=== PATIENT | female | born 1955 | race Caucasian/White ===

== ENCOUNTER 2019-05-08 07:27 | Inpatient (IN) ==
--- NOTE | 2019-05-07 15:32 | Anesthesiology Consultation ---
Date of Service May 07, 2019 Assessment & Plan (1) Encounter for pre-operative examination: PCP clearance 05/02/2019: "Patient medically cleared for proposed right total knee replacement surgery." Chart Review Chart Review: Acceptable Risk for Surgery and Patient seen in Pre Admission Testing Teaching & Discussion Instructed NPO after midnight before surgery, except medications with 15 cc of water. Medication instructions provided according to the PAT guidelines. History Surgery Operation Date: 05/08/19 09:55 Proposed Procedures p Right Total Knee Arthroplasty - Fred Martinez DO Height/Weight Height: 5 ft 5 in Weight: 57.153 kg Allergies Allergy/AdvReac Type Severity Reaction Status Date / Time doxycycline AdvReac Mild NAUSEA/VOMI Verified 04/25/19 16:11 TING oxycodone AdvReac Mild DIZZINESS Verified 04/25/19 16:11 Medications Home Medications Medication Instructions Recorded Confirmed Last Taken Ca carb-Ca gluc-Mg ox-Mg gluco 3 tab PO BID 04/20/19 04/20/19 Unknown [Calcium Magnesium] Zenon's wort 300 mg PO BID 04/20/19 04/20/19 Unknown cholecalciferol (vitamin D3) 1,000 unit PO QAM 04/20/19 04/20/19 Unknown [Vitamin D3] cyanocobalamin (vitamin B-12) 2,500 mcg SUBLINGUAL QAM 04/20/19 04/20/19 Unknown [Vitamin B-12] dicyclomine 20 mg PO DAILY PRN 04/20/19 04/20/19 Unknown levothyroxine [Synthroid] 75 mcg PO QAM 04/20/19 04/20/19 Unknown meloxicam 7.5 mg PO DAILY PRN 04/20/19 04/20/19 Unknown [id number] carb-vit K 1 tab PO QAM 04/20/19 04/20/19 Unknown [Women's Multivitamin] omega-3 fatty acids-fish oil [Fish 1 cap PO BID 04/20/19 04/20/19 Unknown Oil] propranolol 20 mg PO DAILY PRN 04/20/19 04/20/19 Unknown psyllium husk [Metamucil] 1 tbsp PO QAM 04/20/19 04/20/19 Unknown valacyclovir [Valtrex] 500 mg PO QAM 04/20/19 04/20/19 Unknown vitamin B complex-folic acid [B 1 tab PO QAM 04/20/19 04/20/19 Unknown Complex 100] vitamin E 400 unit PO QAM 04/20/19 04/20/19 Unknown Exercise / Class Metabolic Activity II 4-5 Yardwork/Stairs/Walk up hill Past Surgical History Surgical History H/O partial thyroidectomy History of adenoidectomy History of arthroscopy RIGHT KNEE History of carpal tunnel release BILAT History of colonoscopy History of dilatation and curettage X2 History of esophagogastroduodenoscopy (EGD) History of surgery on left wrist FROM FX > X3 History of surgery on right wrist FROM FX History of tonsillectomy Hx of Achilles tendon repair RIGHT Hx of fracture of tibia WITH REPAIR Past Anesthesia History No Hx of Anesthesia Complications and No Family Hx of Anesthesia Complications History of PONV No Hx of PONV and No Hx of Motion Sickness Social History Smoking Status: Never smoker Do You Dip or Chew Tobacco: No Hx Alcohol Use: Yes Alcohol type: wine alcohol intake frequency: a few times a week Hx Substance Use: No substance use type: does not use Review of Systems Pt denies any recent chest pain, shortness of breath, palpitations, cough, fever or URI. Physical Exam Vital Signs BP: 122/79 P: 72bpm SPO2: 97% RA T: 98.1 F R: 12 ENMT Mouth: no dental restorations, no chipped teeth and no loose teeth Thyromental Distance: > or= 3.5 Finger Breadths (3.5) Mallampati Class: I Neck neck extension not limited Respiratory normal respiratory effort Auscultation: lungs clear to auscultation bilaterally Cardiovascular Rate/Rhythm: regular rate and regular rhythm Heart Sounds: no murmur Extremities: no edema Testing Other Testing Laboratory Results Date: 04/25/19 WBC: 5.63 H/H: 13.5/40 PLATELETS: 270 SODIUM: 142 POTASSIUM: 4.4 CHLORIDE: 107 CO2: 31 BUN: 17 CREATININE: 1.03 GLUCOSE: 111 PT: 10.5 PTT: 25.3 INR: 1.0 A1C: 5.3% UA: negative for bacteria TYPE AND SCREEN: A+, Antibody - Electrocardiogram Date: 11/14/18 Findings: + NSR @ (75bpm) Possible LAE. Chest X-Ray Date: 04/25/19 Findings: + NAD
[~2019-05-08 07:27] MED LIST: ACETAMINOPHEN 500 MG TAB PO SCH; CEFAZOLIN 2000MG 2,000 MG/15 ML SYR IV SCH; CeleBREX 200 MG CAP PO SCH; FAMOTIDINE 20 MG TAB PO SCH; GABAPENTIN 600 MG DOSE PO SCH; LR 500ML BOLUS, THEN 15ML/HR IV SCH; METOCLOPRAMIDE HCL 10 MG TABLET PO SCH; ROPIVACAINE 0.5% HCL/PF 150 MG, BUPIVACAINE 0.5% MPF 30 ML, EPINEPHrine 30MG/30ML (OR U... INSTIL SCH; TRANEXAMIC ACID 1,000 MG **IV Intra-op IV SCH; TRANEXAMIC ACID 1,000 MG **IV Pre-op IV SCH; dexAMETHasone 4 MG TAB PO SCH
[2019-05-08] MEDS ORDERED: BUPIVACAINE/EPINEPHRINE 0.25% 1:200,000 30 ML VIAL ONE (07:48)
[2019-05-08] MEDS ORDERED: BUPIVACAINE 0.5 % 5 MG/1 ML PF 10ML VIAL ONE (07:48)
[2019-05-08] MEDS ORDERED: DEXAMETHASONE SOD INJ 4 MG/ML VIAL ONE (07:49)
[2019-05-08] MEDS ORDERED: MIDAZOLAM HCL 1 MG/ML 2ML VIAL ONE (08:23)
[2019-05-08] MEDS ORDERED: fentaNYL citrate 100 MCG/2 ML VIAL ONE (08:23)
[2019-05-08] MEDS ORDERED: LIDOCAINE HCL 2% 2 ML VIAL/AMP(20MG/ML) INFIL ONE (08:23)
[2019-05-08] MEDS ORDERED: ONDANSETRON INJ 2 MG/ML 2 ML VIAL ONE (08:23)
[2019-05-08] MEDS ORDERED: PROPOFOL IV EMULSION 10 MG/ML 20 ML VIAL IV ONE (08:23)
--- NOTE | 2019-05-08 08:54 | History & Physical Bridge Note ---
Date of Service May 08, 2019 History & Physical Bridge Note I have examined the patient, reviewed the History & Physical and in the interval since the performance of the History & Physical I have noted the following changes of clinical significance: no changes noted
[2019-05-08] MEDS ORDERED: ORTHO JOINT ANESTHETIC ONE (09:25)
[2019-05-08] MEDS ORDERED: BACITRACIN INJ 50,000 UNIT VIAL ONE (09:25)
[2019-05-08] MEDS ORDERED: ATROPINE SULFATE 0.1 MG/ML 10ML SYR IV PRN (10:16)
[2019-05-08] MEDS ORDERED: fentaNYL citrate 100 MCG/2 ML VIAL IV PRN (10:16)
[2019-05-08] MEDS ORDERED: ONDANSETRON INJ 2 MG/ML 2 ML VIAL IV PRN ×2 (10:16→13:23)
[2019-05-08] MEDS ORDERED: ePHEDrine sulfate 50 MG/ML AMP IV PRN (10:16)
[2019-05-08] MEDS ORDERED: ePHEDrine sulfate 50 MG/ML SYR ONE (10:46)
[2019-05-08] MEDS ORDERED: PHENYLEPHRINE 100MCG/ML 5ML SYR ONE (10:46)
--- NOTE | 2019-05-08 11:21 | Operative Report ---
Post Operative Report Pre & Post Diagnosis Operation Date: 05/08/19 09:55 Pre-Op Diagnosis: Right Knee Osteoarthritis Post-Op Diagnosis: Right Knee Osteoarthritis I identified the patient and participated in the time-out.: Yes Procedure Operation Date: 05/08/19 09:55 Actual Procedures p Right Total Knee Arthroplasty, Cemented(Right utilizing [employer] journey 2 patient matched total knee arthroplasty size 4 femur 3 tibia 13 polyethylene 29 oval patella) - Fred Martinez DO Surgeon Fred Martinez DO Therapy Aide MANOHAR Garcia Estimated Blood Loss 5 Findings Consistent with Post-Op Diagnosis Patient presents with severe end-stage tricompartmental degenerative joint disease of the right knee varus alignment subchondral cystic changes marginal osteophytes eburnated [id number] with moderate to large effusion Specimens Bone and cartilage Drains Medium bore Hemovac Anesthesia Type MAC Spinal Regional Complications none Disposition Accompanied Patient To Recovery: No Disposition: Recovery Room Indications Patient presents with complaints of ongoing pain about the right knee no response to conservative management and physical therapy anti-inflammatories relative rest activity modification corticosteroid injections bracing the above intraoperative findings noted times surgery Description of Procedure After proper prepping and draping of the Right lower extremity anterior midline incision was made over the region of the extensor extensor mechanism after meticulous hemostasis was obtained and maintained in subcutaneous tissues a medial parapatellar incision was made The patella was subluxed lateralward the medial lateral gutter were cleaned from any hypertrophic synovitis and scar tissue of the distal femoral block was placed and the distal femoral osteotomy cut was made subsequently the chamfers anterior and posterior osteotomy cuts were made utilizing the 4-in-1 block the tibia was subsequently subluxed anteriorward medial and ateral meniscal remnants were excised in their entirety remnants of the anterior and posterior cruciate ligaments were excised in their entirety excellent exposure of the proximal tibia was obtained the tibial osteotomy guide was placed on the proximal tibial osteotomy cut was made once again the knee was irrigated with copious amounts of sterile saline solution the patella was subsequently everted lateralward thickened scar tissue around the patella was removed the patella was subsequently cut utilizing a freehand gianna hnique and was drilled prepared for final preparation and placement of patella socially flexion-extension gaps were checked and the equal and symmetric trials were placed to the appropriate femoral and tibial trials with poly-spacer being placed for equal flexion and extension gaps and full range of motion including extension to 0 and flexion to 140 the trial components after having been taken to recovery range of motion was subsequently removed meticulous hemostasis was obtained and maintained subsequently a knee block injection of joint cocktail including ropivacaine 0.5% 150 mg. Bupivacaine 0.5% epinephrine 1-200,030 mL's toradol 30 mg dexamethasone 4 mg ketamine 10 mg clonidine 100 micrograms normal saline solution 30 mg was infiltrated into the soft tissues of the posterior knee medial lateral gutters and periosteal synovium special attention was paid to protect neurovascular structures at all times subsequently trial components having been removed the knee was irrigated with sterile saline solution. debris was removed the proximal tibia was subsequently prepared and was made ready for the placement of the tibial component tibial component was also cemented and tamped into position the femoral component was subsequently placed and cemented in the position the patellar component was subsequently cemented in position because hemostasis once again obtained and maintained wound having been thoroughly irrigated with debridement and debridement lavage was performed as well as a medial parapatellar incision closed with #1 Vicryl in interrupted fashion subcutaneous was closed with #2 Vicryl skin was closed with skin clips. PA-C was necessary for prepping and drapping as well as wound closure of deep fascia Sub cutaneous tissue and skin and was necessary for the case. A sterile compressive dressing was placed patient was taken to recovery in stable condition of report dictated by Juan I attest to the content of the Intraoperative Record and any orders documented therein. Any exceptions are noted below. I attest to the content of the Intraoperative Record and any orders documented therein. Any exceptions are noted below.
--- NOTE | 2019-05-08 12:37 | XRay Report ---
XR knee RT 1 or 2V routine CLINICAL HISTORY: Surgical Post Op COMPARISON: None. DISCUSSION: Anatomic alignment posttotal right knee arthroplasty. Could contact between prosthetic an d underlying bone. Expected postoperative soft tissue change IMPRESSION: Anatomic alignment posttotal right knee arthroplasty. ACT 112: Negative or not required by law. The above report was generated using voice recognition software. It may contain grammatical, syntax or spelling errors. Electronically signed by: Aleksey Thomas M.D. 05/08/2019 12:35 PM
--- NOTE | 2019-05-08 13:05 | Anesthesiology Progress Note ---
Date of Service May 08, 2019 Anesthesia Post Procedure Vital Signs Vital Signs: Temp Pulse Pulse Resp BP Pulse Ox 05/08/19 13:00 82 16 105/68 98 05/08/19 12:50 74 15 106/64 95 05/08/19 12:40 36.2 C L 71 12 104/61 95 05/08/19 12:30 72 13 107/59 L 99 05/08/19 12:20 70 14 101/60 99 05/08/19 12:10 79 12 100/58 L 98 05/08/19 12:02 36.0 C L 85 16 101/64 100 05/08/19 08:38 36.8 C 74 20 112/78 96 Transfer of Care Handoff Completed per policy Notes Mental Status: alert / awake / arousable Patient Amnestic to Procedure: Yes Nausea / Vomiting: adequately controlled Pain: adequately controlled Airway Patency, RR, SpO2: stable & adequate BP & HR: stable & adequate Hydration State: stable & adequate Neuraxial Anesthesia: was administered and sensory block is resolving Anesthetic Complications: no major complications apparent
[2019-05-08] MEDS ORDERED: NALOXONE HCL 0.4 MG/1 ML VIAL/CARP IV PRN (13:23)
[2019-05-08] MEDS ORDERED: METOCLOPRAMIDE HCL INJ 5 MG/ML 2 ML VIAL IV PRN (13:23)
[2019-05-08] MEDS ORDERED: PROPRANOLOL HCL 20 MG TAB PO PRN (13:23)
[2019-05-08] MEDS ORDERED: DICYCLOMINE HCL 20 MG TAB PO PRN (13:23)
[2019-05-08] MEDS ORDERED: bisacodyL 10 MG SUPP PR PRN (13:23)
[2019-05-08] MEDS ORDERED: MAGNESIUM HYDROXIDE SUSP 30 ML UDC PO PRN (13:23)
[2019-05-08] MEDS ORDERED: SODIUM CHLORIDE 0.9% 1000ML 1,000 ML IV SCH (13:23)
[2019-05-08] MEDS ORDERED: HYDROmorphone INJ 1 MG/ML SYRINGE IV PRN (13:23)
[2019-05-08 14:52] LABS: Creatinine Clr Calc Pharmacy 48.2 ml/min; Est GFR (African American) 64.3; Est GFR (Non-African American) 55.4
[2019-05-08] MEDS: KETOROLAC 30 MG/ML VIAL IV SCH ×2 (15:31→21:19)
[2019-05-08] MEDS: CEFAZOLIN 2000MG 2,000 MG/15 ML SYR IV SCH (18:27)
[2019-05-08] MEDS: HYDROCODONE/ACETAMOPHEN 5/325MG TAB PO PRN (20:47)
[2019-05-08] MEDS: ASPIRIN 81 MG ECTAB PO SCH (20:49)
[2019-05-08] MEDS: DOCUSATE SODIUM 100 MG CAP PO SCH (20:51)
[2019-05-08] MEDS: SENNA 8.6 MG TAB PO SCH (20:51)
[2019-05-08] MEDS: PSYLLIUM 58.6% POWDER PACKET PO SCH (21:20)
[2019-05-09] MEDS: HYDROCODONE/ACETAMOPHEN 5/325MG TAB PO PRN ×4 (01:02→21:36)
[2019-05-09] MEDS: CEFAZOLIN 2000MG 2,000 MG/15 ML SYR IV SCH (01:03)
[2019-05-09 05:32] LABS: Hematocrit (blood only) 32.3 % (37-47); Mean Corpuscular Hemoglobin 34.4 pg (25-34); Mean Corpuscular Hgb Conc 34.1 g/dL (32-36); Mean Corpuscular Volume 100.9 fL (80-100); Mean Platelet Volume 10.7 fL (7.4-10.4); Platelet Count 262 K/uL (130-400); RDW Coefficient of Variation 13.1 % (11.5-14.5); RDW Standard Deviation 48.4 fL (36.4-46.3); White Blood Count 16.41 K/uL (4.8-10.8)
[2019-05-09] MEDS: LEVOTHYROXINE SODIUM 75 MCG TABLET PO SCH (05:43)
[2019-05-09] MEDS: KETOROLAC 30 MG/ML VIAL IV SCH ×2 (05:43→12:43)
[2019-05-09 06:06] LABS: BUN Creatinine Ratio 19.2 (10-20); Calcium 8.2 mg/dl (8.5-10.1); Creatinine Clr Calc Pharmacy 59.5 ml/min; Est GFR (African American) 82.7; Est GFR (Non-African American) 71.4; Potassium 4.1 mmol/L (3.5-5.1)
--- NOTE | 2019-05-09 07:26 | Anesthesiology Progress Note ---
Date of Service May 09, 2019 Anesthesia Post Procedure Vital Signs Vital Signs: Temp Pulse Pulse Pulse Resp BP BP 05/09/19 07:14 36.9 C 57 L 16 106/64 05/09/19 03:07 36.7 C 62 14 99/58 L 05/08/19 23:20 37.1 C 63 16 106/61 05/08/19 19:21 36.5 C 75 16 112/67 05/08/19 16:16 36.3 C L 90 18 103/65 05/08/19 15:16 36.3 C L 89 18 114/68 05/08/19 14:12 36.5 C 89 16 114/74 05/08/19 13:44 82 16 110/68 05/08/19 13:10 36.3 C L 85 16 100/64 05/08/19 13:00 82 16 105/68 05/08/19 12:50 74 15 106/64 05/08/19 12:40 36.2 C L 71 12 104/61 05/08/19 12:30 72 13 107/59 L 05/08/19 12:20 70 14 101/60 05/08/19 12:10 79 12 100/58 L 05/08/19 12:02 36.0 C L 85 16 101/64 05/08/19 08:38 36.8 C 74 20 112/78 Pulse Ox 05/09/19 07:14 98 05/09/19 03:07 99 05/08/19 23:20 97 05/08/19 19:21 98 05/08/19 16:16 99 05/08/19 15:16 99 05/08/19 14:12 100 05/08/19 13:44 99 05/08/19 13:10 98 05/08/19 13:00 98 05/08/19 12:50 95 05/08/19 12:40 95 05/08/19 12:30 99 05/08/19 12:20 99 05/08/19 12:10 98 05/08/19 12:02 100 05/08/19 08:38 96 Pain Intensity Left Shoulder: Pain Intensity: 5 Right Knee: Pain Intensity: 5 Notes Mental Status: alert / awake / arousable Patient Amnestic to Procedure: Yes Nausea / Vomiting: adequately controlled Pain: adequately controlled Airway Patency, RR, SpO2: stable & adequate BP & HR: stable & adequate Hydration State: stable & adequate Neuraxial Anesthesia: sensory block resolved Anesthetic Complications: no major complications apparent
[2019-05-09] MEDS: CHOLECALCIFEROL 1,000 UNITS 25 MCG TAB PO SCH (07:49)
[2019-05-09] MEDS: CYANOCOBALAMIN (VITAMIN B-12) 2,500 MCG TAB.SUBL SL SCH (07:49)
[2019-05-09] MEDS: ASPIRIN 81 MG ECTAB PO SCH ×2 (07:49→21:39)
--- NOTE | 2019-05-09 08:11 | Orthopedic Progress Note ---
Date of Service May 09, 2019 Assessment & Plan (1) Arthritis of right knee: Postop day 1 status post right total knee arthroplasty. PT/OT protocols. Weightbearing as tolerated. DVT prophylaxis with aspirin p.o. twice daily, SCDs, BRAD quick Continue current pain regimen. Patient receiving p.o. pain meds at the time of my visit. DC planning-patient is hoping for home health services however she has some concerns of whether her insurance will cover it or not. We will have case management stop by and discuss this with her. Admission and Anticipated Discharge Date Admission Date: May 08, 2019 Subjective Postop day 1 Patient is lying in bed awake and alert. States she is currently having pain that rates at a 7 or an 8 out of 10. She states that she had minimal sleep last night. No other complaints at this time. Denies any shortness of breath, chest pain, lightheadedness. Physical Exam Physical Exam: Dressings are clean, dry, and intact. Calves are soft and nontender. Neurovascular is intact. Toes are mobile. With good dorsiflexion and plantarflexion of the right ankle. Thick drainage was 20 mL's from the previous shift. Results & Data ([place]) Vital Signs (Past 12 Hours) Vital Signs Temp Pulse Pulse Resp BP BP Pulse Ox 05/09/19 07:14 36.9 C 57 L 16 106/64 98 05/09/19 03:07 36.7 C 62 14 99/58 L 99 05/08/19 23:20 37.1 C 63 16 106/61 97 Laboratory Results Laboratory Results WBC 16.41 K/uL (4.8-10.8) H 05/09/19 04:48 RBC 3.20 M/uL (4.2-5.4) L 05/09/19 04:48 Hgb 11.0 g/dL (12.0-16.0) L 05/09/19 04:48 Hct 32.3 % (37-47) L 05/09/19 04:48 MCV 100.9 fL (80-100) H 05/09/19 04:48 MCH 34.4 pg (25-34) H 05/09/19 04:48 MCHC 34.1 g/dL (32-36) 05/09/19 04:48 RDW Std Deviation 48.4 fL (36.4-46.3) H 05/09/19 04:48 RDW Coeff of Lesa 13.1 % (11.5-14.5) 05/09/19 04:48 Plt Count 262 K/uL (130-400) 05/09/19 04:48 MPV 10.7 fL (7.4-10.4) H 05/09/19 04:48 Sodium 142 mmol/L (136-145) 05/09/19 04:48 Potassium 4.1 mmol/L (3.5-5.1) 05/09/19 04:48 Chloride 111 mmol/L (98-107) H 05/09/19 04:48 Carbon Dioxide 25 mmol/L (21-32) 05/09/19 04:48 Anion Gap 6.0 (3-11) 05/09/19 04:48 BUN 17 mg/dl (7-18) 05/09/19 04:48 Creatinine 0.86 mg/dl (0.6-1.2) 05/09/19 04:48 Est Cr Clr Drug Dosing 59.5 ml/min 05/09/19 04:48 Est GFR ( Amer) 82.7 05/09/19 04:48 Est GFR (Non-Af Amer) 71.4 05/09/19 04:48 BUN/Creatinine Ratio 19.2 (10-20) 05/09/19 04:48 Glucose 135 mg/dl (70-99) H 05/09/19 04:48 Calcium 8.2 mg/dl (8.5-10.1) L 05/09/19 04:48
[2019-05-09] MEDS: PSYLLIUM 58.6% POWDER PACKET PO SCH (10:34)
[2019-05-09] MEDS: DOCUSATE SODIUM 100 MG CAP PO SCH ×2 (10:34→21:39)
[2019-05-09] MEDS: MULTIVITAMIN TAB PO SCH (10:35)
[2019-05-09] MEDS: SENNA 8.6 MG TAB PO SCH (21:38)
[2019-05-09] MEDS: CeleBREX 200 MG CAP PO SCH (21:39)
[2019-05-10] MEDS: HYDROCODONE/ACETAMOPHEN 5/325MG TAB PO PRN ×2 (04:58→10:26)
[2019-05-10] MEDS: LEVOTHYROXINE SODIUM 75 MCG TABLET PO SCH (05:46)
--- NOTE | 2019-05-10 07:36 | Orthopedic Progress Note ---
Date of Service May 10, 2019 Assessment & Plan (1) Arthritis of right knee: Postop day 2 status post right total knee arthroplasty. PT/OT protocols. Weightbearing as tolerated. DVT prophylaxis with aspirin p.o. twice daily, SCDs, BRAD quick Continue current pain regimen. she lives alone but has close friends nearby that will offer her assistance. she is concerned that she doesn't have the room in her house to do a lot of walking, she would like to discuss with CM possible rehab vs HHPT and what her coverage would look like. will recheck after PT Today Admission and Anticipated Discharge Date Admission Date: May 08, 2019 Subjective Postop day 2 Patient is lying in bed awake and alert. States she is currently having pain that rates at a 6 out of 10. She had better sleep last night. Denies any shortness of breath, chest pain, lightheadedness. Physical Exam Physical Exam: Vital Signs Temp 36.6 C 05/10/19 07:18 Pulse 67 05/10/19 07:18 Resp 16 05/10/19 07:18 BP 120/69 05/10/19 07:18 Pulse Ox 97 05/10/19 07:18 Intake & Output 05/09/19 05/10/19 05/10/19 18:59 06:59 18:59 Intake Total 500 / 1900 1400 / 1900 Output Total 200 / 375 175 / 375 Balance 300 / 1525 1225 / 1525 Intake: Oral 500 / 1900 1400 / 1900 Output: Drain Output 200 / 375 175 / 375 Right Knee Hem ovac 200 / 375 175 / 375 Other: # Unmeasured Voi ds 3 Constitutional: WD/WN, vitals as above no acute distress Musculoskeletal: right knee: NVDI, calf SNT, negative bebeto sign. DP palpable, able to wiggle toes/ankle movement without difficulty. Incision clean dry and intact. expected post-operative bruising noted. Results & Data ([facility]) Vital Signs (Past 12 Hours) Vital Signs Temp Pulse Pulse Resp BP BP Pulse Ox 05/10/19 07:18 36.6 C 67 16 120/69 97 05/09/19 23:43 37.0 C 65 15 115/76 99 Laboratory Results Laboratory Results WBC 16.41 K/uL (4.8-10.8) H 05/09/19 04:48 RBC 3.20 M/uL (4.2-5.4) L 05/09/19 04:48 Hgb 11.0 g/dL (12.0-16.0) L 05/09/19 04:48 Hct 32.3 % (37-47) L 05/09/19 04:48 MCV 100.9 fL (80-100) H 05/09/19 04:48 MCH 34.4 pg (25-34) H 05/09/19 04:48 MCHC 34.1 g/dL (32-36) 05/09/19 04:48 RDW Std Deviation 48.4 fL (36.4-46.3) H 05/09/19 04:48 RDW Coeff of Lesa 13.1 % (11.5-14.5) 05/09/19 04:48 Plt Count 262 K/uL (130-400) 05/09/19 04:48 MPV 10.7 fL (7.4-10.4) H 05/09/19 04:48 Sodium 142 mmol/L (136-145) 05/09/19 04:48 Potassium 4.1 mmol/L (3.5-5.1) 05/09/19 04:48 Chloride 111 mmol/L (98-107) H 05/09/19 04:48 Carbon Dioxide 25 mmol/L (21-32) 05/09/19 04:48 Anion Gap 6.0 (3-11) 05/09/19 04:48 BUN 17 mg/dl (7-18) 05/09/19 04:48 Creatinine 0.86 mg/dl (0.6-1.2) 05/09/19 04:48 Est Cr Clr Drug Dosing 59.5 ml/min 05/09/19 04:48 Est GFR ( Amer) 82.7 05/09/19 04:48 Est GFR (Non-Af Amer) 71.4 05/09/19 04:48 BUN/Creatinine Ratio 19.2 (10-20) 05/09/19 04:48 Glucose 135 mg/dl (70-99) H 05/09/19 04:48 Calcium 8.2 mg/dl (8.5-10.1) L 05/09/19 04:48 Hepatitis C Ab Screen Neg (Neg) 05/09/19 04:48
[2019-05-10] MEDS: CYANOCOBALAMIN (VITAMIN B-12) 2,500 MCG TAB.SUBL SL SCH (08:06)
[2019-05-10] MEDS: CeleBREX 200 MG CAP PO SCH (08:06)
[2019-05-10] MEDS: MULTIVITAMIN TAB PO SCH (08:06)
[2019-05-10] MEDS: ASPIRIN 81 MG ECTAB PO SCH (08:06)
[2019-05-10] MEDS: CHOLECALCIFEROL 1,000 UNITS 25 MCG TAB PO SCH (08:06)
[2019-05-10] MEDS: DOCUSATE SODIUM 100 MG CAP PO SCH (08:07)
[2019-05-10] MEDS: PSYLLIUM 58.6% POWDER PACKET PO SCH (08:09)
--- NOTE | 2019-05-10 19:22 | Discharge Summary ---
Date of Service date of discharge: May 10, 2019 date of admission: 05-08-19 Principal Diagnosis right knee arthritis Discharge Exam Vital Signs Temp 36.6 C 05/10/19 13:53 Pulse 65 05/10/19 13:53 Resp 16 05/10/19 13:53 BP 115/76 05/10/19 13:53 Pulse Ox 97 05/10/19 13:53 Intake & Output 05/10/19 05/10/19 05/11/19 06:59 18:59 06:59 Intake Total 1400 / 1900 715 / 715 Output Total 175 / 375 Balance 1225 / 1525 715 / 715 Weight 57.153 kg Intake: Oral 1400 / 1900 715 / 715 Output: Drain Output 175 / 375 Right Knee Hemovac 175 / 375 Other: # Unmeasured Voids 3 Constitutional WD/WN, vitals as above no acute distress Musculoskeletal right knee: NVDI, calf SNT, negative bebeto sign. DP palpable, able to wiggle toes/ankle movement without difficulty. Incision clean dry and intact. expected post-operative bruising noted. Discharge Data Allergies Allergy/AdvReac Type Severity Reaction Status Date / Time doxycycline AdvReac Mild NAUSEA/VOMI Verified 04/25/19 16:11 TING oxycodone AdvReac Mild DIZZINESS Verified 04/25/19 16:11 Consultations 05/08/19 13:23 Consult Case Management - Discharge Planning Routine 05/10/19 07:32 Consult Case Management - Discharge Planning Routine Procedures Performed Operation Date: 05/08/19 09:55 Actual Procedures p Right Total Knee Arthroplasty, Cemented(Right) - Fred Martinez DO Ordered Studies 05/08/19 US - OR guided needle placemen Routine Hospital Course (1) Arthritis of right knee: Postop day 2 status post right total knee arthroplasty. PT/OT protocols. Weightbearing as tolerated. DVT prophylaxis with aspirin p.o. twice daily, SCDsBRAD Continue current pain regimen. she lives alone but has close friends nearby that will offer her assistance. she is concerned that she doesn't have the room in her house to do a lot of walking, she would like to discuss with CM possible rehab vs HHPT and what her coverage would look like. will recheck after PT Today. has been approved for rehab Total Time Total Time Spent Total Time Spent (In Minutes): 20 Total Time Includes: Examination of the Patient, Discharge Planning and Medication Reconciliation Discharge Plan Discharge Items Patient Disposition: Transfer Inpatient Rehab Fac Reason For Visit: Right Knee Osteoarthritis Discharge Diagnosis: Right Total knee Replacement Activity: Per Instructions section Weightbearing: Full weightbearing Non-emergency contact: Surgeon Call non-emergency contact if: you have any medication questions, your temperature is above 101, your wound has increased redness, your wound has increased drainage and your wound pain has increased Follow-up/Referrals: Cliff House MD [Primary Care Provider] - Diet: Regular Addtl Attending Provider Instructions: ACTIVITY RECOMMENDATIONS: SELF CARE INSTRUCTIONS AFTER TOTAL KNEE REPLACEMENT A. You may need to continue a physical therapy program after discharge from the hospital. There are several options available to you. Your doctor will assist you in selecting the best one for you. 1. An out-patient facility 2 to 3 times a week for therapy or home therapy. 2. Continue working on all exercises taught to you in the hospital. Your goals should be to increase bending of your knee to 90 degrees and beyond and to fully straighten your knee. B. You may progress at your own pace from walking with a walker or crutches to a cane; then to no assistive devices. C. Make walking a part of your daily routine. Be up as much as comfortable with rest periods throughout the day. Rest with leg elevation is very important. Use the ice wrap frequently for the first 3-4 weeks. D. There are no restrictions on activities. You may ride in a car, shop, participate in waste machine offbearer and all social activities. E. Wear the long elastic stockings (BRAD hose) 20 hours a day for 2 weeks after surgery. They can be removed several times a day for laundering and for a bath. F. You may shower, no tub baths until cleared by your doctor. SPECIAL CARE INSTRUCTIONS: VERY IMPORTANT TO READ AND REVIEW A. There are a few signs you need to watch for after you are home. Call [facility] if you notice any of the followin. Increased severe knee pain. Some pain is expected especially when you exercise. 2. Increased swelling in your leg or knee; pain or swelling of the calf muscle in either lower leg. 3. Any fluid drainage from the incision. 4. Shortness of breath or chest pain. B. Please call [facility] at if you have any concerns or questions about your operation or recovery. The doctor or his nurse will return your call promptly. C. You must take antibiotics before dental work, bladder, bowel or other surgery. Your doctor will provide you with a permanent care to carry describing this precaution. IMPORTANT: * REMEMBER TO TAKE ASPIRIN, 81 MG, TWICE DAILY FOR 4 WEEKS UNLESS OTHERWISE DIRECTED. THIS IS YOUR BLOOD THINNER. * HIGH RISK PATIENTS MAY BE PRESCRIBED A STRONGER BLOOD THINNER. THIS WILL BE PROVIDED AT DISCHARGE. * CALL IF INCREASED PAIN, REDNESS, DRAINAGE OR FEVER GREATER THAT 101. * WEAR BRAD HOSE 20 HOURS PER DAY FOR 2 WEEKS. * DERMABOND [place]- This is a mesh tape dressing that is covered with glue. It should remain in place until the incision is properly healed, usually 10-14 days. This dressing is designed to naturally slough off. You may trim the excess mesh tape as it peels off. Incision may be briefly wet in a shower. Dry immediately by blotting with a clean, dry towel. Do not bath or swim until instructed by your doctor. Do not scratch, rub, or pick at the dressing. Do not apply any topical ointments or lotions until dressing is completely removed and/or instructed by your doctor. There may be a small piece of suture material at one end of your incision. Do not pull or trim this. If it is bothersome or catching on clothing, you may cover it with a band-aid. IF INCISION IS LEAKING THROUGH DRESSING, CALL THE OFFICE . FOLLOW UP VISIT: If appointment is not already scheduled: Please call [facility] to make a follow-up appointment for 2 weeks after your surgery at . Pending Studies at Discharge: No Stand-Alone Forms: My [facility] Skilled Items Patient informed of condition?: Yes DNR: No Discharge Level of Care: Acute rehab Communicable Disease: No Discharge Prognosis: Improving Lines: None Urinary Catheter: No Medications and DC Order Prescriptions: New aspirin 81 mg Tablet,Delayed Release (Dr/Ec) 81 mg PO BID 30 Days Qty: 60 RF: 0 celecoxib [Celebrex] 200 mg Capsule 200 mg PO BID 30 Days Qty: 60 RF: 0 hydrocodone-acetaminophen [[place]] 5-325 mg Tablet 1 - 2 tab PO Q4H PRN (Reason: pain) Qty: 30 RF: 0 Continued cyanocobalamin (vitamin B-12) [Vitamin B-12] 2,500 mcg Tablet, Sublingual 2,500 mcg SUBLINGUAL QAM RF: 0 [place] wort 300 mg Tablet 300 mg PO BID RF: 0 valacyclovir [Valtrex] 500 mg Tablet 500 mg PO QAM RF: 0 levothyroxine [Synthroid] 75 mcg Tablet 75 mcg PO QAM RF: 0 dicyclomine 20 mg Tablet 20 mg PO DAILY PRN (Reason: Stomach Upset) RF: 0 propranolol 20 mg Tablet 20 mg PO DAILY PRN (Reason: Tremor(S)) RF: 0 vitamin E 400 unit Capsule 400 unit PO QAM RF: 0 vitamin B complex-folic acid [B Complex 100] 0.4 mg Tablet 1 tab PO QAM RF: 0 cholecalciferol (vitamin D3) [Vitamin D3] 25 mcg (1,000 unit) Tablet 1,000 unit PO QAM RF: 0 Calcium Magnesium 500 mg calcium -250 mg Tablet 3 tab PO BID RF: 0 Metamucil 3.4 gram/5.4 gram Powder 1 tbsp PO QAM RF: 0 Women's Multivitamin 18 mg-400 mcg- 500 mg-50 mcg Tablet 1 tab PO QAM RF: 0 Discontinued meloxicam 7.5 mg Tablet 7.5 mg PO DAILY PRN (Reason: Pain) RF: 0 omega-3 fatty acids-fish oil [Fish Oil] 360-1,200 mg Capsule 1 cap PO BID RF: 0 Discharge Orders: Discharge Order (Routine); Ordered 05/10/19 Ordered By: Aleksey Garcia Admission Data Admit Date/Time: 05/08/19 10:51 Attending Provider: Fred Martinez Admit Provider: Fred Martinez Primary Care Provider: Cliff House Other Providers: [facility] Other Interventions: Discharge Summary Assessment (RN) Last Done: 05/10/19 13:53 DC Date/Time DO NOT enter until pt leaves facility: 05/10/19 15:46
== END 2019-05-10 15:46 | DRG 470 ==
LOC: ASU 07:27 → 3E 10:51